=== PATIENT | male | born 1985 | race Caucasian/White ===

== ENCOUNTER 2019-11-12 06:39 | Emergency (ER) | payer BC ==
--- NOTE | 2019-11-12 07:32 | ER Document Report ---
ED Extremity Problem, Lower - General Chief Complaint: Ankle Pain Stated Complaint: RIGHT FOOT PAIN AND SWELLING Time Seen by Provider: 11/12/19 07:17 Primary Care Provider: ISAEL COHEN PA-C [PHYSICIAN MANAGER SALES] - Follow up as needed Notes: HPI: 34-year-old male who presents today stating around 5 days ago he was sitting in [employer] and when he went to stand up he felt some pain to the right lateral ankle. He has had no discoloration. No radiation to the calf. No swelling of the lower leg. No pain to the posterior aspect of the Achilles region. ROS: See HPI Reviewed vital signs and nursing note as charted by RN. PHYSICAL EXAM: CONSTITUTIONAL: Alert and oriented and responds appropriately to questions. Well-appearing; well-nourished EXT: Patient has some mild swelling to the right lateral malleolus with some tenderness to palpation. No surrounding erythema. No tenderness at all to the foot. No tenderness to the Achilles with no shortening noted. Dorsiflexion with squeezing of the calf. No calf pain or swelling. Strong distal pulses to the right foot with sensation intact light touch SKIN: No acute lesions noted - Related Data Allergies/Adverse Reactions: No Known Allergies Allergy (Verified 11/12/19 07:12) Past Medical History - Social History Smoking Status: Never Smoker Frequency of alcohol use: None Drug Abuse: None Family History: Malignancy - prostate Patient has homicidal ideation: No GI Medical History: Reports: Hx Irritable Bowel - Immunizations Hx Diphtheria, Pertussis, Tetanus Vaccination: Yes Physical Exam - Vital signs Vitals: Temp Pulse Resp BP Pulse Ox 98.3 F 70 16 155/101 H 98 11/12/19 06:45 11/12/19 06:45 11/12/19 06:45 11/12/19 06:45 11/12/19 06:45 Course - Re-evaluation Re-evalutation: 11/12/19 07:32 Given the above history and physical an x-ray was performed of the ankle. I have low suspicion for Achilles injury, DVT, or vascular compromise. 11/12/19 07:49 X-ray of the ankle shows no acute fractures. No change in exam. Still no areas of redness or concerns of cellulitis or infection. Patient will be discharged home with strict return precautions. Patient states he has an Gold wrap at home and does not request a splint. He understands to ice rest and elevate. We will provide crutches. I have provided orthopedic follow-up. - Vital Signs Vital signs: Temp Pulse Resp BP Pulse Ox 98.3 F 70 16 155/101 H 98 11/12/19 06:45 11/12/19 06:45 11/12/19 06:45 11/12/19 06:45 11/12/19 06:45 Discharge - Discharge Clinical Impression: Right ankle sprain Qualifiers: Encounter type: initial encounter Involved ligament of ankle: unspecified ligament Qualified Code(s): S93.401A - Sprain of unspecified ligament of right ankle, initial encounter Condition: Good Disposition: HOME, SELF-CARE Additional Instructions: Come back immediately for any increased pain, new locations of pain, calf pain or leg swelling, redness to the area, fevers or vomiting, or any other acute problems. Please make sure you ice, rest, and elevate as discussed and follow- up with orthopedics. You may take ibuprofen 600 mg every 6 hours for pain and swelling. Referrals: ISAEL COHEN PA-C [PHYSICIAN MANAGER SALES] - Follow up as needed CARLY CRAIG DO [ACTIVE STAFF] - Follow up as needed
--- NOTE | 2019-11-12 07:35 | RADIOLOGY REPORT (SQ) ---
EXAM: X-ray ankle two views, right CLINICAL DATA: 34-year-old male with ankle pain TECHNICAL DATA: Two x-ray views of the right ankle were performed on 11/12/2019 at 7:08 AM. COMPARISONS: None FINDINGS: There is no evidence of fracture or dislocation. There is no significant arthritis or degenerative change. No focal lytic or sclerotic bone lesions are seen. Bone mineralization is normal. There is mild lateral soft tissue swelling. IMPRESSION: No evidence of acute osseous injury involving the right ankle. There is mild lateral soft tissue swelling.
[2019-11-12 08:09] VITALS: BP 133/92
== END 2019-11-12 08:09 | disposition home or self-care (01) ==
LOC: ER 06:39
DX: S93.401A Sprain of unspecified ligament of right ankle, initial encounter (principal); M25.571 Pain in right ankle and joints of right foot; M79.89 Other specified soft tissue disorders; M79.671 Pain in right foot; X58.XXXA Exposure to other specified factors, initial encounter
CPT/HCPCS: 99283